=== PATIENT | male | born 1975 | race Caucasian/White ===

== ENCOUNTER 2017-09-29 06:53 | Day surgery (SDC) | payer BC ==
[2017-09-26 13:53] VITALS: BMI 25.0
[2017-09-29 07:39] VITALS: TEMP 97.8
[2017-09-29] MEDS ORDERED: ROPIVACAINE HCL 0.5% 30ML VIAL ONE (08:38)
[2017-09-29] MEDS ORDERED: MIDAZOLAM HCL 2 MG/2 ML SINGLE DOSE VIAL ONE ×2 (08:38→08:50)
[2017-09-29] MEDS ORDERED: DEXAMETHASONE SOD PHOSPHATE/PF 10 MG/ML SDV ONE (08:38)
[2017-09-29] MEDS ORDERED: ONDANSETRON 4 MG/2 ML VIAL ONE (08:50)
[2017-09-29] MEDS ORDERED: DEXAMETHASONE SOD PHOSPHATE 4 MG/1 ML VIAL ONE (08:50)
[2017-09-29] MEDS ORDERED: BUPIVACAINE HCL/EPINEPHRINE/PF 30 ML VIAL IJ ONE (09:04)
[2017-09-29] MEDS ORDERED: EPINEPHrine 1:1,000 1 MG/1 ML - 30ML VIAL (INJECTION) ONE (09:04)
[2017-09-29] MEDS ORDERED: ceFAZolin SODIUM 1 GM VIAL ONE (09:47)
[2017-09-29] MEDS ORDERED: BUPIVACAINE 0.25% /EPI 1:200,000 10 ML VIAL INF ONE (10:57)
[2017-09-29] MEDS ORDERED: oxyCODONE HCL 10 MG SUSTAINED ACTING TABLET PO ONE (11:11)
[2017-09-29] MEDS ORDERED: oxyCODONE HCL 5 MG TABLET PO PRN ×2 (11:11→11:26)
--- NOTE | 2017-09-29 11:21 | DS ---
Physical Examination Vital Signs: Vital Signs Temperature 97.8 F 09/29/17 07:37 Pulse Rate 58 L 09/29/17 07:37 Respiratory Rate 18 09/29/17 07:37 Blood Pressure 124/76 09/29/17 07:37 O2 Sat by Pulse Oximetry (%) Discharge Summary Reason For Visit: RECURRENT AC JOINT PAIN Condition: Good - Instructions Diet, Activity, Other Instructions: Post Operative Instructions: Shoulder Arthroscopy Dr Jim Pinzon 1. Pain following a Shoulder Arthroscopy is variable and can be significant. Some patients will have more pain than others. You have been provided with a prescription for medication that contains a narcotic. You are not allowed to drive while on this medication. Feel free to take medications such as Ibuprofen or Naprosyn in addition to the pain medicine if you do not have any problems with the NSAID class of medications. 2. Apply ice to the shoulder for 15 minutes every hour. You may continue this for as many days as necessary. 3. You may find sleeping on an incline (reclining chair) to be more comfortable for the first few days. 4. You should remain in your sling at all times except when showering. The only exception to this is to allow you to stretch your elbow and move your shoulder gently a few times a day to prevent your hand and forearm from swelling. 5. You are not to use your arm to reach for anything, lift anything or carry anything until instructed otherwise. 6. You may remove the bandages in 24 hours. You may shower at that point. 7. Place band-aids on the sutures after your shower.Do not put any creams or lotions on the incision until after the sutures are removed. 8. Please call the office to schedule a visit to have your sutures removed. 9. If for any reason you believe you may have an infection or are concerned, please feel free to call me. I can be reached through our office number 24 hours a day. 10. Please call our office with any questions; we will review the surgical findings during your post-operative visit. Disposition: HOME - Home Medications Comprehensive Discharge Medication List: Ambulatory Orders Aspirin [Aspirin EC] 81 mg PO DAILY 09/26/17 Fenofibrate Nanocrystallized [Fenofibrate] 145 mg PO DAILY 09/26/17 Multivitamin [One Daily] 1 each PO DAILY 09/26/17 Niacin [Niacin -] 500 mg PO DAILY 09/26/17 [place]-3 Fatty Acids/Fish Oil [Fish Oil 1,000 mg Capsule] 1 each PO DAILY
--- NOTE | 2017-09-29 11:21 | OP ---
Operative Note - Note: Operative Date: 09/29/17 Pre-Operative Diagnosis: right shoulder ACJ pain Operation: RSA, posterior labral repair, ACJ debridement. Post-Operative Diagnosis: Other (Right shoulder ACJ pain, Posterior labral tear , early OA GH joint) Surgeon: Jim Pinzon Anesthesiologist/GREASE RACK WORKER: Trav Abdi Anesthesia: Local Operative Report Dictated: Yes
[2017-09-29] MEDS ORDERED: oxyCODONE HCL 10 MG SUSTAINED ACTING TABLET ONE (11:25)
[2017-09-29] MEDS ORDERED: ACETAMINOPHEN 325 MG TABLET (FP) PO PRN (11:26)
[2017-09-29] MEDS ORDERED: ONDANSETRON 4 MG/2 ML VIAL IVPUSH PRN (11:26)
[2017-09-29] MEDS ORDERED: LACTATED RINGERS SOLUTION 1,000 ML IV SCH (11:30)
[2017-09-29 12:42] VITALS: BP 111/77; PULSE 74
--- NOTE | 2017-10-03 13:52 | PATH ---
Surgical Pathology Report Patient Name: DAVE BRODY [facility]. Rec. #: [id number] /Age/Gender: 1975 (Age: 42) / M Account: [id number] Location: [facility] Taken: 09/29/2017 Received: 09/29/2017 Reported: 10/03/2017 Physicians: Jim Pinzon M.D. Specimen(s) Received RIGHT SHOULDER SHAVINGS Clinical History Recurrent a.c. joint pain right shoulder Final Diagnosis SHOULDER, RIGHT, ARTHROSCOPIC SHAVINGS: FIBROCOLLAGENOUS TISSUE, CARTILAGE, SKELETAL MUSCLE AND SCANT BONE. Electronically Signed Priscila Lu M.D. Gross Description Received in formalin labeled "right shoulder shavings," is a 1.5 x 0.9 x 0.2 cm aggregate of garg-yellow soft tissue fragments. The formalin is filtered and the specimen is entirely submitted in one cassette. /09/29/201709/29/2017
== END 2017-09-29 12:15 | disposition home or self-care (01) ==
LOC: FASU 06:53
PROVIDERS: ATTEND Orthopaedic Surgery
PROC: 0RQJ4ZZ Repair Right Shoulder Joint, Percutaneous Endoscopic Approach (ICD-10-PCS; 2017-09-29)
PROC: 0RBJ4ZZ Excision of Right Shoulder Joint, Percutaneous Endoscopic Approach (ICD-10-PCS; principal; 2017-09-29 08:30)
DX: M25.511 Pain in right shoulder (principal); M24.111 Other articular cartilage disorders, right shoulder; M19.011 Primary osteoarthritis, right shoulder
CPT/HCPCS: 88304-TC